=== PATIENT | female | born 1995 | race Caucasian/White ===

== ENCOUNTER 2017-02-08 13:12 | Emergency (ER) | payer OTHER, MEDICAID ==
[~2017-02-08] VITALS: Ht 160 cm; Wt 43.5 kg
[2017-02-08 14:21] LABS: INFLUENZA B ANTIGEN None DetectedA (None Detect)
[2017-02-08 14:24] LABS: URINE BLOOD 2+ (Negative); URINE CLARITY CLEAR; URINE COLOR YELLOW; URINE GLUCOSE-RANDOM NEGATIVE (Negative); URINE NITRITE-REFLEX NEGATIVE (Negative); URINE PROTEIN 2+ (Negative); URINE SPECIFIC GRAVITY >= 1.030 (1.005-1.030); URINE UROBILINOGEN 0.2 E.U./dl (0.2-1.0)
[2017-02-08] MEDS ORDERED: PROAIR HFA8.5 GM INH (14:26)
[2017-02-08] MEDS ORDERED: TESSALON PERLE100 MG PO (14:26)
[2017-02-08] MEDS ORDERED: PROMETHAZINE V473 ML PO (14:26)
[2017-02-08] MEDS ORDERED: IBUPROFEN 600600 M1 PO (14:26)
[2017-02-08] MEDS ORDERED: ACETAMINOPHEN-1 EAC1 PO (14:26)
[2017-02-08 14:46] LABS: ICTOTEST (BILI CONFIRMATORY) ND (Negative); URINE BILIRUBIN 2+ (Negative); URINE KETONES 3+ (Negative); URINE LEUKOCYTES-REFLEX 2+ (Negative)
[2017-02-08 14:47] LABS: ACETEST (KETONE CONFIRMATORY) ND (Negative); CASTS None Seen /LPF (None Seen); SQUAMOUS >10 Many /LPF (0-3); URINE RBC 3-10 Few /HPF (0-2)
[2017-02-08 14:48] LABS: CRYSTALS None Seen /LPF (None Seen)
[2017-02-08] MEDS ORDERED: BACTRIM DS TAB1 EACH PO (14:51)
[2017-02-08 15:07] VITALS: BP 99/62
== END 2017-02-08 15:08 | disposition home or self-care (01) ==
LOC: M.ERS 13:12
PROVIDERS: Physician Assistant
DX: N30.01 Acute cystitis with hematuria (principal); J09.X2 Influenza due to identified novel influenza A virus with other respiratory manifestations; F10.99 Alcohol use, unspecified with unspecified alcohol-induced disorder